=== PATIENT | male | born 1945 ===

== ENCOUNTER 2018-06-27 09:06 | Inpatient (IN) | payer MEDICARE ==
[2018-06-27] MEDS ORDERED: Haloperidol Lactate 5 MG/ML SDV IVPUSH ONE (09:22)
[2018-06-27] MEDS ORDERED: diphenhydrAMINE 50 MG/ML SDV IVPUSH ONE (09:22)
[2018-06-27] MEDS ORDERED: fentaNYL 100 MCG/2 ML SDV IVPUSH ONE (09:30)
--- NOTE | 2018-06-27 09:36 | EDM.PDOC ---
ED HPI GENERAL MEDICAL PROBLEM - General Chief Complaint: General Stated Complaint: [facility] Time Seen by Provider: 06/27/18 09:26 Source of Information: Reports: EMS, Old Records, RN Notes Reviewed History Limitations: Reports: Physical Impairment - History of Present Illness INITIAL COMMENTS - FREE TEXT/NARRATIVE: 73-year-old gentleman presents emergency department today via EMS services for increasing agitation and pain he is currently a [facility] resident was evaluated by his primary care on June 21 this year found to have a questionable trochanteric fracture on the right side recommend CT follow-up. Primary care after discussion with orthopedics elected to do weightbearing as tolerated. Report from the [facility] states he has increasing agitation he does have a significant history of dementia so difficult to fully assess was sent to the emergency department for further evaluation as he was difficult to control behaviors in the [facility]. Therefore no review of systems and minimal H&P was obtained secondary to his dementia Right Hip Pain Score (Numeric/FACES): 8 - Related Data Allergies Allergy/AdvReac Type Severity Reaction Status Date / Time alendronate sodium Allergy Cannot Verified 06/27/18 09:31 [From Fosamax] Remember Penicillins Allergy Hives Verified 06/27/18 09:31 Home Meds: Home Meds Albuterol [Ventolin HFA] 2 puff .XX Q4H PRN 06/27/18 [History] Aspirin [Halfprin] 81 mg PO DAILY 06/27/18 [History] Budesonide/Formoterol Fumarate [Symbicort 80-4.5 Mcg Inhaler] 2 puff INH BID 02/05 [History] Citalopram Hydrobromide [Celexa] 25 mg PO DAILY 06/27/18 [History] Hydrocodone/Acetaminophen [[place] 5-325 Tablet] 1 tab PO Q8H 06/27/18 [History] L.acidoph,Paracasei, B.lactis [Probiotic] 1 each PO DAILY 06/27/18 [History] LORazepam [Ativan] 0.5 mg PO BID PRN 06/27/18 [History] Lactobacillus Acidophilus [Acidophilus Lactobacilli] 1 each PO DAILY 06/27/18 [ History] Losartan [Cozaar] 25 mg PO DAILY 06/27/18 [History] Melatonin 3 mg PO BEDTIME 06/27/18 [History] Multivit-Min/Iron Fum/Folic AC [Xtxur-Vpcnkhc-Uvkooevc Tablet] 1 each PO DAILY 06/27/18 [History] Naproxen [Naprosyn] 1 tab PO BID 06/27/18 [History] Past Medical History Cardiovascular History: Reports: Hypertension Respiratory History: Reports: COPD Psychiatric History: Reports: Anxiety, Dementia, Other (See Below) (Failure to thrive) Oncologic (Cancer) History: Reports: Metastatic, Prostate Social & Family History - Tobacco Use Smoking Status *Q: Former Smoker ED ROS GENERAL - Review of Systems Review Of Systems: Unable To Obtain ED EXAM, GENERAL - Physical Exam Exam: See Below Free Text/Narrative:: Examination of the right hip is tender to palpation with pain any movement internal/external rotation or flexion extension Exam Limited By: Physical Impairment General Appearance: Alert, Moderate Distress Eye Exam: Bilateral Eye: PERRL Respiratory/Chest: No Accessory Muscle Use, Decreased Breath Sounds. No: Respiratory Distress Cardiovascular: Regular Rate, Rhythm, No Murmur GI/Abdominal: Soft, Non-Tender Course - Vital Signs Last Recorded V/S: Last Vital Signs Temp 98.3 F 06/27/18 09:25 Pulse 90 06/27/18 09:25 Resp 20 06/27/18 09:25 BP 178/93 H 06/27/18 09:25 Pulse Ox 97 06/27/18 09:25 - Orders/Labs/Meds Meds: Medications Discontinued Medications Generic Name Dose Route Start Last Admin Trade Name Shaye PRN Reason Stop Dose Admin Diphenhydramine HCl 50 mg 06/27/18 09:22 06/27/18 09:43 Benadryl IVPUSH 06/27/18 09:23 50 mg ONETIME ONE Administration Fentanyl 50 mcg 06/27/18 09:30 06/27/18 09:45 Sublimaze IVPUSH 06/27/18 09:31 50 mcg ONETIME ONE Administration Haloperidol Lactate 5 mg 06/27/18 09:22 06/27/18 09:44 Haldol IVPUSH 06/27/18 09:23 5 mg ONETIME ONE Administration Hydromorphone HCl 1 mg 06/27/18 12:12 06/27/18 12:19 Dilaudid IVPUSH 06/27/18 12:13 1 mg ONETIME ONE Administration Ketamine HCl 10 mg 06/27/18 10:45 06/27/18 10:40 Ketalar IV 06/27/18 10:46 10 mg ONETIME ONE Administration Ketamine HCl 10 mg 06/27/18 11:00 06/27/18 12:30 Ketalar IV 06/27/18 11:01 10 mg ONETIME ONE Administration Departure - Departure Time of Disposition: 15:09 Disposition: Admitted As Inpatient 67 Condition: Poor Clinical Impression: Intertrochanteric fracture of right hip Qualifiers: Encounter type: initial encounter Fracture type: closed Fracture alignment: displaced Qualified Code(s): S72.141A - Displaced intertrochanteric fracture of right femur, initial encounter for closed fracture - Discharge Information Referrals: PCP,None [Primary Care Provider] - Forms: ED Department Discharge - Assessment/Plan Plan: Assessment Acuity = acute Site and laterality = closed impacted and comminuted fracture intertrochanteric right hip complicated patient with severe dementia as well as COPD and hypertension Etiology = possibly related to metastatic prostate cancer Manifestations = pain Location of injury = Home Lab values = CT scan describes fracture above Plan I had a discussion with his daughter who is power of traffic law attorney she felt he would not want any aggressive measures no surgery and is willing to move to comfort care and hospice consideration. I discussed case with hospitalist projection welding machine operator he agreed, and evaluate the patient emergency department for admission This note was dictated using [employer] voice recognition software please call with any questions on syntax or grammar.
[2018-06-27] MEDS ORDERED: Ketamine 500 MG/5 ML MDV IV ONE ×4 (10:21→11:00)
--- NOTE | 2018-06-27 11:27 | CT ---
CT right hip. Technique: Auto dosage and iterative reconstruction techniques employed. Findings: Proximal right hip fracture which appears intertrochanteric with multiple fracture lines through the greater trochanter and through the lesser trochanter. Impacted fracture as well with extension to the base of the neck. Multiple fracture fragments. Centrally at the base of the neck there is a lucency along with a lucency at the anterior left femoral head/neck. Findings are concerning for a pathological fracture. The acetabulum is intact. Surgical clips right hemipelvis. 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 Impression: 1. Impacted and comminuted intertrochanteric fracture involving the base of the femoral neck. Expansile lucency at the base of the femoral neck and at the anterior head/neck is concerning for a pathological fracture.
[2018-06-27] MEDS ORDERED: HYDROmorphone 1 MG/ML Syringe IVPUSH ONE (12:12)
--- NOTE | 2018-06-27 16:13 | PCM.HP ---
H&P History of Present Illness - General Date of Service: 06/27/18 Admit Problem/Dx: Admission Diagnosis/Problem Admission Diagnosis/Problem Fracture of hip Source of Information: Family, Provider, RN Notes Reviewed History Limitations: Reports: Altered Mental Status (Dementia) - History of Present Illness Initial Comments - Free Text/Narative: Mr. Alvarado is a 73-year-old gentleman who is admitted through the emergency room for management of severe pain secondary to a right hip fracture. He has a history of significant dementia and resides at a local assisted living facility. Staff at the assisted living facility noted significant pain in the patient's right hip. He has a known history of metastatic prostate cancer and this is felt to represent a pathological fracture. There is no history of fall or other injury. On evaluation today in the emergency department is noted to have an intertrochanteric fracture of the right hip. Findings have been reviewed with his daughter Jannette who is his medical power of tax attorney. She has requested comfort cares only with no surgical intervention. Because of his significant dementia the patient is unable to provide meaningful history concerning recent symptoms or review of systems. Right Hip Pain Score (Numeric/FACES): 8 - Related Data Allergies/Adverse Reactions: Allergies Allergy/AdvReac Type Severity Reaction Status Date / Time alendronate sodium Allergy Cannot Verified 06/27/18 09:31 [From Fosamax] Remember Penicillins Allergy Hives Verified 06/27/18 09:31 Home Medications: Home Meds Albuterol [Ventolin HFA] 2 puff .XX Q4H PRN 06/27/18 [History] Aspirin [Halfprin] 81 mg PO DAILY 06/27/18 [History] Budesonide/Formoterol Fumarate [Symbicort 80-4.5 Mcg Inhaler] 2 puff INH BID 02/05 [History] Citalopram Hydrobromide [Celexa] 25 mg PO DAILY 06/27/18 [History] Hydrocodone/Acetaminophen [[place] 5-325 Tablet] 1 tab PO Q8H 06/27/18 [History] L.acidoph,Paracasei, B.lactis [Probiotic] 1 each PO DAILY 06/27/18 [History] LORazepam [Ativan] 0.5 mg PO BID PRN 06/27/18 [History] Lactobacillus Acidophilus [Acidophilus Lactobacilli] 1 each PO DAILY 06/27/18 [ History] Losartan [Cozaar] 25 mg PO DAILY 06/27/18 [History] Melatonin 3 mg PO BEDTIME 06/27/18 [History] Multivit-Min/Iron Fum/Folic AC [Kxdew-Txegebg-Tvdvtgbo Tablet] 1 each PO DAILY 06/27/18 [History] Naproxen [Naprosyn] 1 tab PO BID 06/27/18 [History] Past Medical History HEENT History: Reports: Impaired Vision, Other (See Below) Other HEENT History: hearing loss both ears Cardiovascular History: Reports: Hypertension Respiratory History: Reports: COPD Other Respiratory History: pulmonary node Genitourinary History: Reports: Prostate Disorder, Other (See Below) Other Genitourinary History: urinary retention at times malignant neoplasm of prostate Musculoskeletal History: Reports: Osteoporosis, Other (See Below) Other Musculoskeletal History: Possible r hip fx segmental and somatic dysfunctio cervical region and thoracic Neurological History: Reports: TIA Psychiatric History: Reports: Anxiety, Dementia, Other (See Below) (Failure to thrive) Other Psychiatric History: insomnia Oncologic (Cancer) History: Reports: Metastatic, Prostate Dermatologic History: Reports: Psoriasis Social & Family History - Tobacco Use Smoking Status *Q: Former Smoker Used Tobacco, but Quit: Yes Month/Year Tobacco Last Used: 0 - Recreational Drug Use Recreational Drug Use: No H&P Review of Systems - Review of Systems: Review Of Systems: Unable To Obtain General: Reports: ROS unobtainable (Dementia) Exam - Exam Exam: See Below - Vital Signs Vital Signs: Last Vital Signs Temp 98.3 F 06/27/18 09:25 Pulse 90 06/27/18 09:25 Resp 20 06/27/18 09:25 BP 178/93 H 06/27/18 09:25 Pulse Ox 97 06/27/18 09:25 Weight: 156 lb 8.451 oz - Exam General: Alert, Severe Distress HEENT: Conjunctiva Clear, Mucosa Moist & [place], Normal Nasal Septum, Posterior Pharynx Clear, Pupils Equal Neck: Supple, Trachea Midline, +2 Carotid Pulse wo Bruit Lungs: Clear to Auscultation, Normal Respiratory Effort Cardiovascular: Regular Rate, Regular Rhythm, Normal S1, Normal S2. No: Systolic Murmur, Diastolic Murmur GI/Abdominal Exam: Soft, Non-Tender, No Organomegaly, No Distention Extremities: Other (Medial rotation of the right leg at the hip) Skin: Warm, Dry, Intact Neuro Extensive - Mental Status: Disorientation to Person, Disorientation to Place, Disorientation to Time, Memory Loss-Remote Events, Memory Loss-Recent Events, Other (Agitated) *Q Meaningful Use (ADM) - VTE *Q VTE Mechanical Contraindications *Q: Tx/Proc Refused byPt VTE Pharmacological Contraindications *Q: Tx/Proc Refused by Pt - VTE Risk Assess *Q Each Risk Factor Represents 1 Point: None Total Score 1 Point Risk Factors: 0 Each Risk Factor Represents 2 Points: Age 60 - 74 Years Total Score 2 Point Risk Factors: 2 Each Risk Factor Represents 3 Points: None Total Score 3 Point Risk Factors: 0 Each Risk Factor Represents 5 Points: Hip, Pelvis or Leg Fracture, Less than 1 month Total Score 5 Point Risk Factors: 5 Venous Thromboembolism Risk Factor Score *Q: 7 Problem List Initiated/Reviewed/Updated: Yes Orders Last 24hrs: Active Orders 24 hr Category Date Time Status Patient Status Manage Transfer [TRANSFER] Routine ADT 06/27/18 15:50 Ordered Resuscitation Status Routine Resus Stat 06/27/18 16:01 Ordered Assessment/Plan Comment:: ASSESSMENT AND PLAN RIGHT HIP FRACTURE-no history of fall or injury. He has a known history of metastatic prostate cancer and this is felt to represent a pathological fracture. Findings were reviewed with his daughter Jannette who is his medical power of tax attorney. She feels that it would be consistent with her father's previously expressed wishes that we not pursue aggressive interventions or evaluation. The fracture will be managed conservatively with pain medication and he will be placed on comfort cares only. -Fentanyl patch 12 g every 72 hours -Dilaudid 0.5 mg IV every 2 hours when necessary pain SEVERE DEMENTIA-with severe agitation secondary to his pain -Management of pain as above -Depakote 250 mg by mouth 3 times a day -Haldol 1 mg IV every 2 hours as needed for agitation -Melatonin 9 mg by mouth daily at bedtime METASTATIC PROSTATE CARCINOMA-not actively treated at the present time -Comfort cares only HYPERTENSION -Continue outpatient medications COPD -Nebulized albuterol every 4 hours as needed -Continue outpatient medications PALLIATIVE CARE-patient's family does not want aggressive interventions or surgery. Comfort measures as needed MAINTENANCE ISSUES -DVT prophylaxis; not indicated because of comfort care status -GI prophylaxis; not indicated -Mary catheter; not indicated -Nutrition; regular diet -Nicotine dependence; not required CODE STATUS-DNR/DNI COMFORT CARES ONLY ADMISSION STATUS-patient will be admitted to inpatient status, expect at least a 2 night hospital stay for evaluation and management of problems as outlined above. At the time of this admission I do not reasonably expected evaluation and management of this problem will require more than a 96 hour hospital stay. DISPOSITION-anticipate discharge to [facility] with hospice admission PRIMARY CARE PROVIDER-
[2018-06-27] MEDS ORDERED: Sodium Chloride 0.9% 10 ML Syringe FLUSH PRN (16:47)
[2018-06-27] MEDS ORDERED: Acetaminophen 325 MG Tab PO PRN (16:47)
[2018-06-27] MEDS ORDERED: Albuterol 0.083% 2.5 MG/3 ML Neb Soln NEB PRN (16:47)
[2018-06-27] MEDS ORDERED: Polyethylene Glycol 3350 Powder 17 GM Packet PO PRN (16:47)
[2018-06-27] MEDS ORDERED: Ondansetron 4 MG/2 ML SDV IV PRN (16:47)
[2018-06-27] MEDS ORDERED: fentaNYL 12 MCG/HR Transdermal Patch TRDERM SCH (17:00)
[2018-06-27] MEDS: HYDROmorphone 0.5 MG/0.5 ML Syringe IVPUSH PRN ×2 (17:10→19:13)
[2018-06-27] MEDS: Divalproex Sodium Delayed-Release 250 MG Tab.CR PO SCH (17:55)
[2018-06-27] MEDS: Haloperidol Lactate 5 MG/ML SDV IVPUSH PRN ×2 (18:00→21:18)
[2018-06-27] MEDS ORDERED: Haloperidol Lactate 5 MG/ML SDV IM ONE (19:48)
[2018-06-27] MEDS: Acetaminophen 650 MG Supp RECTAL ONE ×2 (19:58→20:54)
[2018-06-27] MEDS: HYDROmorphone 1 MG/ML Syringe SUBCUT PRN ×2 (20:01→21:17)
--- NOTE | 2018-06-27 20:22 | PCM.SN ---
- Free Text/Narrative Note: time: 20:00 call to evaluate Mr. Alvarado, Nursing report he is in pain, agitated. He pulled out his IV access. last Dilaudid 2 hours ago. O: Mr. Alvarado is sitting at the edge of the bed without any clothes, moaning in pain. agitated, resistant to re-positioning. skin is warm to touch. temp. 99.7 chest lungs clear, heart tachy A: right fracture hip, pain control, dementia P: order Haldol 5 mg IM now, then 1 mg IM every 2 hours prn, may given additional dose in one hour, if still restless order Dilaudid 1 mg subcut every 2 hours, may given additional dose in one hour prn pain Tylenol 650mg rectal supp for fever. continue close monitor, medicate for pain and agitation as needed.
[2018-06-27] MEDS: Lactobacillus Rhamnosus GG (Probiotic) Cap PO SCH (20:28)
[2018-06-27] MEDS: Formoterol/Mometasone 100-5 MCG 8.8 GM Inhaler IH SCH (20:28)
[2018-06-27] MEDS: VERIFY FENTANYL PATCH TOP SCH (20:29)
[2018-06-27] MEDS: Melatonin 3 MG Tab PO SCH (22:12)
[2018-06-27] MEDS ORDERED: HYDROmorphone 1 MG/ML Syringe SUBCUT ONE (22:15)
[2018-06-27] MEDS: Haloperidol Lactate 5 MG/ML SDV IM PRN (23:36)
[2018-06-28] MEDS: HYDROmorphone 1 MG/ML Syringe SUBCUT PRN ×6 (00:34→12:06)
[2018-06-28] MEDS: Haloperidol Lactate 5 MG/ML SDV IM PRN ×7 (02:01→17:56)
[2018-06-28] MEDS: Formoterol/Mometasone 100-5 MCG 8.8 GM Inhaler IH SCH ×2 (07:18→20:27)
[2018-06-28] MEDS ORDERED: Citalopram 10 MG Tab PO SCH (09:00)
[2018-06-28] MEDS: Divalproex Sodium Delayed-Release 250 MG Tab.CR PO SCH ×3 (09:28→18:06)
[2018-06-28] MEDS: Losartan 50 MG Tab PO SCH (09:29)
[2018-06-28] MEDS: Lactobacillus Rhamnosus GG (Probiotic) Cap PO SCH ×2 (09:29→20:27)
[2018-06-28] MEDS: Citalopram 20 MG Tab PO SCH (09:30)
[2018-06-28] MEDS: Aspirin 81 MG Tab.EC PO SCH (09:30)
[2018-06-28] MEDS: VERIFY FENTANYL PATCH TOP SCH ×2 (09:32→20:27)
[2018-06-28] MEDS: Morphine 10 MG/0.5 ML Oral Syringe PO PRN ×9 (12:34→21:24)
[2018-06-28] MEDS ORDERED: fentaNYL 25 MCG/HR Transdermal Patch TRDERM SCH (13:00)
[2018-06-28] MEDS: Gabapentin 100 MG Cap PO SCH ×2 (13:49→20:27)
--- NOTE | 2018-06-28 18:20 | PCM.PN ---
- General Info Date of Service: 06/28/18 Subjective Update: Mr. Alvarado has had ongoing difficulty with severe pain and agitation related to his right hip fracture and underlying severe dementia. He has been somewhat resistant to taking oral medications and he has pulled out his IV line. Through the night and into the morning he's been managed with IM pain medications as well as Haldol for agitation. He is unable to provide meaningful history concerning recent symptoms or review systems because of his underlying dementia. - Patient Data Vitals - Most Recent: Last Vital Signs Temp 98.8 F 06/28/18 15:00 Pulse 89 06/28/18 15:00 Resp 18 06/28/18 15:00 BP 121/76 06/28/18 09:29 Pulse Ox 90 L 06/28/18 15:00 Weight - Most Recent: 156 lb 8.451 oz I&O - Last 24 Hours: Intake & Output 06/28/18 06/28/18 06/28/18 06:59 14:59 22:59 Intake Total 240 Output Total 100 Balance 240 -100 Med Orders - Current: Current Medications Acetaminophen (Tylenol) 650 mg PO Q4H PRN PRN Reason: Pain (Mild 1-3)/fever Last Admin: 06/28/18 13:50 Dose: 650 mg Albuterol (Proventil Neb Soln) 2.5 mg NEB Q4H PRN PRN Reason: Shortness Of Breath/wheezing Aspirin (Halfprin) 81 mg PO DAILY [facility] Last Admin: 06/28/18 09:30 Dose: 81 mg Citalopram Hydrobromide (Celexa) 20 mg PO DAILY [facility] Last Admin: 06/28/18 09:30 Dose: 20 mg Divalproex Sodium (Divalproex Sodium) 250 mg PO TIDMEALS [facility] Last Admin: 06/28/18 18:06 Dose: 250 mg Fentanyl (Duragesic) 25 mcg TRDERM Q72H [facility] Last Admin: 06/28/18 13:38 Dose: 25 mcg Gabapentin (Neurontin) 100 mg PO BID [facility] Last Admin: 06/28/18 13:49 Dose: 100 mg Haloperidol Lactate (Haldol) 2 mg IM Q2H PRN PRN Reason: Anxiety Last Admin: 06/28/18 17:56 Dose: 2 mg Lactobacillus Rhamnosus (Culturelle) 1 cap PO BID [facility] Last Admin: 06/28/18 09:29 Dose: 1 cap Losartan Potassium (Cozaar) 25 mg PO DAILY [facility] Last Admin: 06/28/18 09:29 Dose: 25 mg Melatonin (Melatonin) 9 mg PO BEDTIME [facility] Last Admin: 06/27/18 22:12 Dose: Not Given Mometasone Furoate/Formoterol Fumar (Dulera 100-5 Mcg) 2 puff IH BIDRT [facility] Last Admin: 06/28/18 07:18 Dose: Not Given Morphine Sulfate (Morphine 10 Mg/0.5 Ml Oral Syringe) 10 mg PO Q1H PRN PRN Reason: Pain Last Admin: 06/28/18 18:14 Dose: 10 mg Verify Fentanyl (Patch) 0 each TOP BID [facility] Last Admin: 06/28/18 09:32 Dose: Not Given Ondansetron HCl (Zofran) 4 mg IV Q4H PRN PRN Reason: Nausea/Vomiting Polyethylene Glycol (Miralax) 17 gm PO DAILY PRN PRN Reason: Constipation Sodium Chloride (Saline Flush) 10 ml FLUSH ASDIRECTED PRN PRN Reason: Keep Vein Open Discontinued Medications Acetaminophen (Tylenol) 650 mg RECTAL NOW ONE Stop: 06/27/18 19:52 Last Admin: 06/27/18 20:54 Dose: 650 mg Diphenhydramine HCl (Benadryl) 50 mg IVPUSH ONETIME ONE Stop: 06/27/18 09:23 Last Admin: 06/27/18 09:43 Dose: 50 mg Fentanyl (Sublimaze) 50 mcg IVPUSH ONETIME ONE Stop: 06/27/18 09:31 Last Admin: 06/27/18 09:45 Dose: 50 mcg Fentanyl (Duragesic) 12 mcg TRDERM Q72H [facility] Last Admin: 06/27/18 17:15 Dose: 12 mcg Haloperidol Lactate (Haldol) 5 mg IVPUSH ONETIME ONE Stop: 06/27/18 09:23 Last Admin: 06/27/18 09:44 Dose: 5 mg Haloperidol Lactate (Haldol) 1 mg IVPUSH Q2H PRN PRN Reason: Agitation Last Admin: 06/27/18 21:18 Dose: 1 mg Haloperidol Lactate (Haldol) 5 mg IM ONETIME ONE Stop: 06/27/18 19:49 Last Admin: 06/27/18 19:57 Dose: 5 mg Haloperidol Lactate (Haldol) 1 mg IM Q2H PRN PRN Reason: Anxiety Last Admin: 06/28/18 10:54 Dose: 1 mg Hydromorphone HCl (Dilaudid) 1 mg IVPUSH ONETIME ONE Stop: 06/27/18 12:13 Last Admin: 06/27/18 12:19 Dose: 1 mg Hydromorphone HCl (Dilaudid) 0.5 mg IVPUSH Q2H PRN PRN Reason: Pain (severe 7-10) Last Admin: 06/27/18 19:13 Dose: 0.5 mg Hydromorphone HCl (Dilaudid) 1 mg SUBCUT Q2H PRN PRN Reason: Pain Last Admin: 06/28/18 12:06 Dose: 1 mg Hydromorphone HCl (Dilaudid) 1 mg SUBCUT ONETIME ONE Stop: 06/27/18 22:16 Last Admin: 06/27/18 22:22 Dose: 1 mg Ketamine HCl (Ketalar) 10 mg IV ONETIME ONE Stop: 06/27/18 10:46 Last Admin: 06/27/18 10:40 Dose: 10 mg Ketamine HCl (Ketalar) 10 mg IV ONETIME ONE Stop: 06/27/18 11:01 Last Admin: 06/27/18 12:30 Dose: 10 mg - Exam General: Alert. No: Oriented, Cooperative Lungs: Clear to Auscultation, Normal Respiratory Effort Cardiovascular: Regular Rate, Regular Rhythm, No Murmurs GI/Abdominal Exam: Soft, Non-Tender, No Organomegaly, No Distention Extremities: Other (Severe pain right hip) - Problem List Review Problem List Initiated/Reviewed/Updated: Yes - My Orders Last 24 Hours: My Active Orders 06/27/18 21:00 Lactobacillus Rhamnosus GG [Culturelle] 1 cap PO BID Melatonin 9 mg PO BEDTIME Mometasone/Formoterol [Dulera 100-5 MCG] 2 puff IH BIDRT Non-Formulary Medication [NF Drug] 0 each TOP BID 06/28/18 09:00 Aspirin [Halfprin] 81 mg PO DAILY Citalopram [Celexa] 20 mg PO DAILY Losartan [Cozaar] 25 mg PO DAILY 06/28/18 12:19 Morphine [Morphine 10 MG/0.5 ML Oral Syringe] 10 mg PO Q1H PRN 01/09/19 12:21 Haloperidol Lactate [Haldol] 2 mg IM Q2H PRN 06/28/18 13:00 Gabapentin [Neurontin] 100 mg PO BID fentaNYL [Duragesic] 25 mcg TRDERM Q72H - Plan Plan:: ASSESSMENT AND PLAN RIGHT HIP FRACTURE-no history of fall or injury. He has a known history of metastatic prostate cancer and this is felt to represent a pathological fracture. Findings were reviewed with his daughter Jannette who is his medical power of divorce attorney. She feels that it would be consistent with her father's previously expressed wishes that we not pursue aggressive interventions or evaluation. The fracture will be managed conservatively with pain medication and he will be placed on comfort cares only. Ongoing difficulty with management of pain -Increase Fentanyl patch to 25g every 72 hours -Liquid morphine Intensol 10 mg buccal every 1 hour as needed SEVERE DEMENTIA-ongoing agitation associated with pain -Management of pain as above -Depakote 250 mg by mouth 3 times a day -Haldol 2 mg IM every 2 hours as needed for agitation -Melatonin 9 mg by mouth daily at bedtime -Gabapentin 100 mg by mouth twice a day METASTATIC PROSTATE CARCINOMA-not actively treated at the present time -Comfort cares only HYPERTENSION -Continue outpatient medications COPD -Nebulized albuterol every 4 hours as needed -Continue outpatient medications PALLIATIVE CARE-patient's family does not want aggressive interventions or surgery. Comfort measures as needed MAINTENANCE ISSUES -DVT prophylaxis; not indicated because of comfort care status -GI prophylaxis; not indicated -Mary catheter; not indicated -Nutrition; regular diet -Nicotine dependence; not required CODE STATUS-DNR/DNI COMFORT CARES ONLY ADMISSION STATUS-patient will be admitted to inpatient status, expect at least a 2 night hospital stay for evaluation and management of problems as outlined above. At the time of this admission I do not reasonably expected evaluation and management of this problem will require more than a 96 hour hospital stay. DISPOSITION-anticipate discharge to [facility] with hospice admission PRIMARY CARE PROVIDER-
[2018-06-28] MEDS: Melatonin 3 MG Tab PO SCH (20:27)
[2018-06-29] MEDS: Morphine 10 MG/0.5 ML Oral Syringe PO PRN ×6 (00:14→16:09)
[2018-06-29] MEDS: Formoterol/Mometasone 100-5 MCG 8.8 GM Inhaler IH SCH ×2 (07:29→20:01)
[2018-06-29] MEDS: VERIFY FENTANYL PATCH TOP SCH ×2 (09:05→21:20)
[2018-06-29] MEDS: Divalproex Sodium Delayed-Release 250 MG Tab.CR PO SCH ×3 (09:06→17:45)
[2018-06-29] MEDS: Lactobacillus Rhamnosus GG (Probiotic) Cap PO SCH ×2 (09:07→20:01)
[2018-06-29] MEDS: Gabapentin 100 MG Cap PO SCH ×2 (09:07→20:02)
[2018-06-29] MEDS: Citalopram 20 MG Tab PO SCH (09:07)
[2018-06-29] MEDS: Aspirin 81 MG Tab.EC PO SCH (09:07)
[2018-06-29] MEDS: Losartan 50 MG Tab PO SCH (09:07)
--- NOTE | 2018-06-29 15:09 | PCM.PN ---
- General Info Date of Service: 06/29/18 Subjective Update: Rosendo appears very comfortable with current pain and end-of-life management. Not able to provide significant history concerning symptoms or review of systems because of his severe dementia. - Patient Data Vitals - Most Recent: Last Vital Signs Temp 98.5 F 06/29/18 07:59 Pulse 93 06/29/18 07:59 Resp 18 06/29/18 07:59 BP 99/59 L 06/29/18 09:07 Pulse Ox 90 L 06/29/18 07:59 Weight - Most Recent: 156 lb 8.451 oz Med Orders - Current: Current Medications Acetaminophen (Tylenol) 650 mg PO Q4H PRN PRN Reason: Pain (Mild 1-3)/fever Last Admin: 06/28/18 13:50 Dose: 650 mg Albuterol (Proventil Neb Soln) 2.5 mg NEB Q4H PRN PRN Reason: Shortness Of Breath/wheezing Aspirin (Halfprin) 81 mg PO DAILY [facility] Last Admin: 06/29/18 09:07 Dose: Not Given Citalopram Hydrobromide (Celexa) 20 mg PO DAILY [facility] Last Admin: 06/29/18 09:07 Dose: Not Given Divalproex Sodium (Divalproex Sodium) 250 mg PO TIDMEALS [facility] Last Admin: 06/29/18 12:40 Dose: Not Given Fentanyl (Duragesic) 25 mcg TRDERM Q72H [facility] Last Admin: 06/28/18 13:38 Dose: 25 mcg Gabapentin (Neurontin) 100 mg PO BID [facility] Last Admin: 06/29/18 09:07 Dose: Not Given Haloperidol Lactate (Haldol) 2 mg IM Q2H PRN PRN Reason: Anxiety Last Admin: 06/28/18 17:56 Dose: 2 mg Lactobacillus Rhamnosus (Culturelle) 1 cap PO BID [facility] Last Admin: 06/29/18 09:07 Dose: Not Given Losartan Potassium (Cozaar) 25 mg PO DAILY [facility] Last Admin: 06/29/18 09:07 Dose: Not Given Melatonin (Melatonin) 9 mg PO BEDTIME [facility] Last Admin: 06/28/18 20:27 Dose: 9 mg Mometasone Furoate/Formoterol Fumar (Dulera 100-5 Mcg) 2 puff IH BIDRT [facility] Last Admin: 06/29/18 07:29 Dose: Not Given Morphine Sulfate (Morphine 10 Mg/0.5 Ml Oral Syringe) 10 mg PO Q1H PRN PRN Reason: Pain Last Admin: 06/29/18 11:28 Dose: 10 mg Verify Fentanyl (Patch) 0 each TOP BID [facility] Last Admin: 06/29/18 09:05 Dose: Not Given Ondansetron HCl (Zofran) 4 mg IV Q4H PRN PRN Reason: Nausea/Vomiting Polyethylene Glycol (Miralax) 17 gm PO DAILY PRN PRN Reason: Constipation Last Admin: 06/28/18 20:26 Dose: 17 gm Sodium Chloride (Saline Flush) 10 ml FLUSH ASDIRECTED PRN PRN Reason: Keep Vein Open Discontinued Medications Acetaminophen (Tylenol) 650 mg RECTAL NOW ONE Stop: 06/27/18 19:52 Last Admin: 06/27/18 20:54 Dose: 650 mg Diphenhydramine HCl (Benadryl) 50 mg IVPUSH ONETIME ONE Stop: 06/27/18 09:23 Last Admin: 06/27/18 09:43 Dose: 50 mg Fentanyl (Sublimaze) 50 mcg IVPUSH ONETIME ONE Stop: 06/27/18 09:31 Last Admin: 06/27/18 09:45 Dose: 50 mcg Fentanyl (Duragesic) 12 mcg TRDERM Q72H [facility] Last Admin: 06/27/18 17:15 Dose: 12 mcg Haloperidol Lactate (Haldol) 5 mg IVPUSH ONETIME ONE Stop: 06/27/18 09:23 Last Admin: 06/27/18 09:44 Dose: 5 mg Haloperidol Lactate (Haldol) 1 mg IVPUSH Q2H PRN PRN Reason: Agitation Last Admin: 06/27/18 21:18 Dose: 1 mg Haloperidol Lactate (Haldol) 5 mg IM ONETIME ONE Stop: 06/27/18 19:49 Last Admin: 06/27/18 19:57 Dose: 5 mg Haloperidol Lactate (Haldol) 1 mg IM Q2H PRN PRN Reason: Anxiety Last Admin: 06/28/18 10:54 Dose: 1 mg Hydromorphone HCl (Dilaudid) 1 mg IVPUSH ONETIME ONE Stop: 06/27/18 12:13 Last Admin: 06/27/18 12:19 Dose: 1 mg Hydromorphone HCl (Dilaudid) 0.5 mg IVPUSH Q2H PRN PRN Reason: Pain (severe 7-10) Last Admin: 06/27/18 19:13 Dose: 0.5 mg Hydromorphone HCl (Dilaudid) 1 mg SUBCUT Q2H PRN PRN Reason: Pain Last Admin: 06/28/18 12:06 Dose: 1 mg Hydromorphone HCl (Dilaudid) 1 mg SUBCUT ONETIME ONE Stop: 06/27/18 22:16 Last Admin: 06/27/18 22:22 Dose: 1 mg Ketamine HCl (Ketalar) 10 mg IV ONETIME ONE Stop: 06/27/18 10:46 Last Admin: 06/27/18 10:40 Dose: 10 mg Ketamine HCl (Ketalar) 10 mg IV ONETIME ONE Stop: 06/27/18 11:01 Last Admin: 06/27/18 12:30 Dose: 10 mg - Exam General: Sedated, Lethargic Lungs: Clear to Auscultation, Normal Respiratory Effort Cardiovascular: Regular Rate, Regular Rhythm, No Murmurs GI/Abdominal Exam: Soft, Non-Tender, No Organomegaly, No Distention - Problem List Review Problem List Initiated/Reviewed/Updated: Yes - Plan Plan:: ASSESSMENT AND PLAN RIGHT HIP FRACTURE-he is currently comfortable with current management -Fentanyl patch to 25g every 72 hours -Liquid morphine Intensol 10 mg buccal every 1 hour as needed SEVERE DEMENTIA-agitation resolved with current management of pain -Depakote 250 mg by mouth 3 times a day -Haldol 2 mg IM every 2 hours as needed for agitation -Melatonin 9 mg by mouth daily at bedtime -Gabapentin 100 mg by mouth twice a day METASTATIC PROSTATE CARCINOMA-not actively treated at the present time -Comfort cares only HYPERTENSION -Continue outpatient medications COPD -Nebulized albuterol every 4 hours as needed -Continue outpatient medications PALLIATIVE CARE-patient's family does not want aggressive interventions or surgery. Comfort measures as needed MAINTENANCE ISSUES -DVT prophylaxis; not indicated because of comfort care status -GI prophylaxis; not indicated -Mary catheter; not indicated -Nutrition; regular diet -Nicotine dependence; not required CODE STATUS-DNR/DNI COMFORT CARES ONLY ADMISSION STATUS-patient will be admitted to inpatient status, expect at least a 2 night hospital stay for evaluation and management of problems as outlined above. At the time of this admission I do not reasonably expected evaluation and management of this problem will require more than a 96 hour hospital stay. DISPOSITION-anticipate discharge to [facility] with hospice admission PRIMARY CARE PROVIDER-
[2018-06-29] MEDS ORDERED: Sodium Phosphate,Monobasic/Sodium Phosphate,Dibasic Enema 133 ML Bottle RECTAL PRN (16:57)
[2018-06-29] MEDS ORDERED: Bisacodyl 10 MG Supp RECTAL ONE (17:15)
[2018-06-29] MEDS: Melatonin 3 MG Tab PO SCH (20:02)
[2018-06-30] MEDS: Formoterol/Mometasone 100-5 MCG 8.8 GM Inhaler IH SCH (07:56)
[2018-06-30] MEDS: Divalproex Sodium Delayed-Release 250 MG Tab.CR PO SCH ×2 (09:10→11:55)
[2018-06-30] MEDS: Losartan 50 MG Tab PO SCH (09:10)
[2018-06-30] MEDS: Citalopram 20 MG Tab PO SCH (09:10)
[2018-06-30] MEDS: Lactobacillus Rhamnosus GG (Probiotic) Cap PO SCH (09:11)
[2018-06-30] MEDS: Aspirin 81 MG Tab.EC PO SCH (09:11)
[2018-06-30] MEDS: Gabapentin 100 MG Cap PO SCH (09:11)
[2018-06-30] MEDS: Morphine 10 MG/0.5 ML Oral Syringe PO PRN ×2 (09:14→10:41)
[2018-06-30] MEDS: VERIFY FENTANYL PATCH TOP SCH (10:38)
--- NOTE | 2018-06-30 10:42 | PCM.DCSUM1 ---
Discharge Summary - Hospital Course Brief History: Rosendo is a 73-year-old gentleman who is admitted through the emergency department, with acute fracture of his right hip, for management of pain. - Discharge Data Discharge Date: 06/30/18 Discharge Disposition: DC/Tfer to Hospice - Home 50 Condition: Poor - Discharge Diagnosis/Problem(s) (1) Intertrochanteric fracture of right hip SNOMED Code(s): 579820418 ICD Code: S72.141A - DISPLACED INTERTROCHANTERIC FRACTURE OF RIGHT FEMUR, INIT Status: Acute Current Visit: Yes Qualifiers: Encounter type: initial encounter Fracture type: closed Fracture alignment: displaced Qualified Code(s): S72.141A - Displaced intertrochanteric fracture of right femur, initial encounter for closed fracture (2) Prostate cancer SNOMED Code(s): 467474437 ICD Code: C61 - MALIGNANT NEOPLASM OF PROSTATE Status: Chronic Current Visit: No (3) COPD (chronic obstructive pulmonary disease) SNOMED Code(s): 70496438 ICD Code: J44.9 - CHRONIC OBSTRUCTIVE PULMONARY DISEASE, UNSPECIFIED Status : Chronic Current Visit: No (4) Dementia SNOMED Code(s): 56260871 ICD Code: F03.90 - UNSPECIFIED DEMENTIA WITHOUT BEHAVIORAL DISTURBANCE Status: Chronic Current Visit: No Qualifiers: Dementia type: Alzheimer's disease - Patient Summary/Data Hospital Course: Mr. Alvarado is a 73-year-old gentleman who was admitted through the emergency room for management of severe pain secondary to a right hip fracture. He has a history of significant dementia and resides at a local assisted living facility. Staff at the assisted living facility noted significant pain in the patient's right hip. He has a known history of metastatic prostate cancer and this is felt to represent a pathological fracture. There is no history of fall or other injury. On evaluation today in the emergency department is noted to have an intertrochanteric fracture of the right hip. Findings have been reviewed with his daughter Jannette who is his medical power of mergers and acquisitions attorney. She has requested comfort cares only with no surgical intervention. Because of his significant dementia the patient is unable to provide meaningful history concerning recent symptoms or review of systems. He was admitted to comfort cares only/palliative care status. Other than pain management no further aggressive interventions were undertaken. His pain was very severe on admission but became under better control with use of fentanyl patch and morphine. He will be discharged home with this regimen, back to the assisted living facility and will be admitted to hospice after discharge. Activity will be as tolerated and he will resume his usual diet if he's able. - Patient Instructions Diet: Mechanical Soft Activity: As Tolerated Other/Special Instructions: Admit to hospice after discharge from hospital. - Discharge Plan *PRESCRIPTION DRUG MONITORING PROGRAM REVIEWED*: Not Applicable *COPY OF PRESCRIPTION DRUG MONITORING REPORT IN PATIENT RAÚL: Not Applicable Prescriptions/Med Rec: fentaNYL [Duragesic] 25 mcg TRDERM Q72H #5 patch LORazepam [LORazepam Intensol] 0.5 mg PO Q2H #15 ml Morphine [Morphine 10 MG/0.5 ML Oral Syringe] 10 mg PO Q1H PRN #15 ml PRN Reason: Pain Home Medications: Home Meds LORazepam [LORazepam Intensol] 0.5 mg PO Q2H #15 ml 06/30/18 [Rx] Morphine [Morphine 10 MG/0.5 ML Oral Syringe] 10 mg PO Q1H PRN #15 ml 06/30/18 [ Rx] fentaNYL [Duragesic] 25 mcg TRDERM Q72H #5 patch 06/30/18 [Rx] - Discharge Summary/Plan Comment DC Time >30 min.: No - Patient Data Vitals - Most Recent: Last Vital Signs Temp 98.3 F 06/30/18 07:00 Pulse 112 H 06/30/18 07:00 Resp 18 06/30/18 07:00 BP 75/48 L 06/30/18 07:00 Pulse Ox 88 L 06/30/18 07:00 Weight - Most Recent: 156 lb 8.451 oz I&O - Last 24 hours: Intake & Output 06/29/18 06/30/18 06/30/18 22:59 06:59 14:59 Intake Total 0 Balance 0 Med Orders - Current: Current Medications Acetaminophen (Tylenol) 650 mg PO Q4H PRN PRN Reason: Pain (Mild 1-3)/fever Last Admin: 06/28/18 13:50 Dose: 650 mg Albuterol (Proventil Neb Soln) 2.5 mg NEB Q4H PRN PRN Reason: Shortness Of Breath/wheezing Aspirin (Halfprin) 81 mg PO DAILY [facility] Last Admin: 06/30/18 09:11 Dose: Not Given Citalopram Hydrobromide (Celexa) 20 mg PO DAILY [facility] Last Admin: 06/30/18 09:10 Dose: Not Given Divalproex Sodium (Divalproex Sodium) 250 mg PO TIDMEALS [facility] Last Admin: 06/30/18 09:10 Dose: Not Given Fentanyl (Duragesic) 25 mcg TRDERM Q72H [facility] Last Admin: 06/28/18 13:38 Dose: 25 mcg Gabapentin (Neurontin) 100 mg PO BID [facility] Last Admin: 06/30/18 09:11 Dose: Not Given Haloperidol Lactate (Haldol) 2 mg IM Q2H PRN PRN Reason: Anxiety Last Admin: 06/28/18 17:56 Dose: 2 mg Lactobacillus Rhamnosus (Culturelle) 1 cap PO BID [facility] Last Admin: 06/30/18 09:11 Dose: Not Given Losartan Potassium (Cozaar) 25 mg PO DAILY [facility] Last Admin: 06/30/18 09:10 Dose: Not Given Melatonin (Melatonin) 9 mg PO BEDTIME [facility] Last Admin: 06/29/18 20:02 Dose: Not Given Mometasone Furoate/Formoterol Fumar (Dulera 100-5 Mcg) 2 puff IH BIDRT [facility] Last Admin: 06/30/18 07:56 Dose: Not Given Morphine Sulfate (Morphine 10 Mg/0.5 Ml Oral Syringe) 10 mg PO Q1H PRN PRN Reason: Pain Last Admin: 06/30/18 09:14 Dose: 10 mg Verify Fentanyl (Patch) 0 each TOP BID [facility] Last Admin: 06/29/18 21:20 Dose: Not Given Ondansetron HCl (Zofran) 4 mg IV Q4H PRN PRN Reason: Nausea/Vomiting Polyethylene Glycol (Miralax) 17 gm PO DAILY PRN PRN Reason: Constipation Last Admin: 06/28/18 20:26 Dose: 17 gm Sodium Biphosphate/Sodium Phosphate (Fleet Enema) 133 ml RECTAL ASDIRECTED PRN PRN Reason: constipation Last Admin: 06/30/18 06:38 Dose: 133 ml Sodium Chloride (Saline Flush) 10 ml FLUSH ASDIRECTED PRN PRN Reason: Keep Vein Open Discontinued Medications Acetaminophen (Tylenol) 650 mg RECTAL NOW ONE Stop: 06/27/18 19:52 Last Admin: 06/27/18 20:54 Dose: 650 mg Bisacodyl (Dulcolax) 10 mg RECTAL ONETIME ONE Stop: 06/29/18 17:16 Last Admin: 06/29/18 17:59 Dose: 10 mg Diphenhydramine HCl (Benadryl) 50 mg IVPUSH ONETIME ONE Stop: 06/27/18 09:23 Last Admin: 06/27/18 09:43 Dose: 50 mg Fentanyl (Sublimaze) 50 mcg IVPUSH ONETIME ONE Stop: 06/27/18 09:31 Last Admin: 06/27/18 09:45 Dose: 50 mcg Fentanyl (Duragesic) 12 mcg TRDERM Q72H [facility] Last Admin: 06/27/18 17:15 Dose: 12 mcg Haloperidol Lactate (Haldol) 5 mg IVPUSH ONETIME ONE Stop: 06/27/18 09:23 Last Admin: 06/27/18 09:44 Dose: 5 mg Haloperidol Lactate (Haldol) 1 mg IVPUSH Q2H PRN PRN Reason: Agitation Last Admin: 06/27/18 21:18 Dose: 1 mg Haloperidol Lactate (Haldol) 5 mg IM ONETIME ONE Stop: 06/27/18 19:49 Last Admin: 06/27/18 19:57 Dose: 5 mg Haloperidol Lactate (Haldol) 1 mg IM Q2H PRN PRN Reason: Anxiety Last Admin: 06/28/18 10:54 Dose: 1 mg Hydromorphone HCl (Dilaudid) 1 mg IVPUSH ONETIME ONE Stop: 06/27/18 12:13 Last Admin: 06/27/18 12:19 Dose: 1 mg Hydromorphone HCl (Dilaudid) 0.5 mg IVPUSH Q2H PRN PRN Reason: Pain (severe 7-10) Last Admin: 06/27/18 19:13 Dose: 0.5 mg Hydromorphone HCl (Dilaudid) 1 mg SUBCUT Q2H PRN PRN Reason: Pain Last Admin: 06/28/18 12:06 Dose: 1 mg Hydromorphone HCl (Dilaudid) 1 mg SUBCUT ONETIME ONE Stop: 06/27/18 22:16 Last Admin: 06/27/18 22:22 Dose: 1 mg Ketamine HCl (Ketalar) 10 mg IV ONETIME ONE Stop: 06/27/18 10:46 Last Admin: 06/27/18 10:40 Dose: 10 mg Ketamine HCl (Ketalar) 10 mg IV ONETIME ONE Stop: 06/27/18 11:01 Last Admin: 06/27/18 12:30 Dose: 10 mg - Exam Lungs: Reports: Clear to Auscultation, Normal Respiratory Effort Cardiovascular: Reports: Regular Rate, Regular Rhythm, No Murmurs GI/Abdominal Exam: Soft, Non-Tender, No Organomegaly, No Distention *Q Meaningful Use (DIS) - VTE *Q VTE Mechanical Contraindications *Q: Tx/Proc Refused byPt VTE Pharmacological Contraindications *Q: Tx/Proc Refused by Pt
== END 2018-06-30 12:22 | disposition hospice, home (50) | DRG 543 ==
LOC: JP.ED 09:06 → JP.MS 15:50
PROVIDERS: ADMIT Hospitalist; ATTEND Hospitalist
DX: M84.459A Pathological fracture, hip, unspecified, initial encounter for fracture (principal); C79.9 Secondary malignant neoplasm of unspecified site; Z66 Do not resuscitate; Z51.5 Encounter for palliative care; M25.551 Pain in right hip; R45.1 Restlessness and agitation; I10 Essential (primary) hypertension; J44.9 Chronic obstructive pulmonary disease, unspecified; C61 Malignant neoplasm of prostate; Z87.891 Personal history of nicotine dependence; F03.90 Unspecified dementia, unspecified severity, without behavioral disturbance, psychotic disturbance, mood disturbance, and anxiety; H91.90 Unspecified hearing loss, unspecified ear; Z86.73 Personal history of transient ischemic attack (TIA), and cerebral infarction without residual deficits; Z79.82 Long term (current) use of aspirin; Z88.0 Allergy status to penicillin; Z88.8 Allergy status to other drugs, medicaments and biological substances
CPT/HCPCS: 73700 ×2; 96374; 96375; 96376; 99284; 99285; J1170; J1200; J1630; J3010; A9270-GY